=== PATIENT | female | born 1940 | race Caucasian/White ===

== ENCOUNTER 2020-08-30 19:09 | Inpatient (IN) ==
[2020-08-30] MEDS ORDERED: SODIUM CHLORIDE 0.9% 1,000 ML IV STA (19:30)
[2020-08-30 20:28] LABS: Basophils % 0.1 % (0.0-0.8); Hematocrit 33.3 VOL% (35.7-47.0); Immature Granulocytes % 0.4 %; Immature Granulocytes Absolute 0.04 #; Lymphocytes # 1.2 10*3/uL (1.4-4.0); Lymphocytes % 12.2 % (21.3-54.2); Mean Corpuscular Volume 94.1 FL (87-102); Mean Platelet Volume 9.5 FL (9.6-12.0); Monocytes % 4.3 % (1.7-12.7); Platelet Count 192 T/CUMM (130-400); Red Blood Count 3.54 MC/CUMM (3.8-5.5); Red Cell Distribution Width 13.2 % (9.3-17.3); White Blood Count 9.5 T/CUMM (4-12)
[2020-08-30 20:49] LABS: Alanine Aminotransferase 18 U/L (13-56); Albumin 3.1 G/DL (3.4-5.0); Alkaline Phosphatase 63 U/L (45-117); Aspartate Amino Transferase 20 U/L (0-37); Bilirubin,Total < 0.39 MG/DL (0.2-1.0); Blood Urea Nitrogen 23 MG/DL (7-18); Calcium 8.6 MG/DL (8.5-10.1); Estimated Glom Filtration Rate 30 ML/MIN; Ferritin 458.4 ng/ml (8-252); Glucose 139 MG/DL (74-106); Osmolality,Calculated 275.1 MOS/KG (273-304); Total Protein 7.6 G/DL (6.4-8.3)
[2020-08-30 20:52] LABS: Bacteria,Urine Occasional /HPF (Few); Bilirubin,Urine Negative (Negative); Blood, Urine Negative (Negative); Glucose,Urine (UA) Negative (Negative); Ketones,Urine 20 mg/dL (Negative); Mucus,Urine Occasional /LPF (Occasional); Nitrite,Urine Negative (Negative); Protein,Urine 30 MG/DL; RBC,Urine 13 /HPF (0-4); Squamous Epithelial Cell,Urine Occasional /HPF (0-10); Urine Appearance Slightly Hazy (Clear); Urine Color Yellow (Yellow); Urine Specific Gravity 1.017 (1.001-1.035); Urine Urobilinogen < 2.0 EU/DL (0.2-1.0); WBC,Urine 62 /HPF (0-6)
[2020-08-30] MEDS ORDERED: AZITHROMYCIN INJ 500 MG in SODIUM CHLORIDE 0.9% 250 ML IV STA (21:24)
[2020-08-30] MEDS ORDERED: DOCUSATE SODIUM 100 MG CAPSULE PO PRN (23:02)
[2020-08-30] MEDS ORDERED: ONDANSETRON 4 MG/2 ML VIAL IV PRN (23:02)
[2020-08-30] MEDS ORDERED: guaiFENesin/DM ER 600-30 MG TABLET PO PRN (23:02)
[2020-08-30] MEDS ORDERED: DEXTROSE 50% 25 GM/50 ML VIAL IV PRN (23:02)
[2020-08-30] MEDS ORDERED: GLUCAGON 1 MG VIAL IM PRN (23:02)
[2020-08-30] MEDS ORDERED: hydrALAZINE 20 MG/1 ML VIAL IV PRN (23:02)
[2020-08-30] MEDS ORDERED: diphenhydrAMINE CAP 25 MG CAPSULE PO PRN (23:02)
[2020-08-30] MEDS ORDERED: NICOTINE 21 MG/24 HR PATCH TRANSDERM PRN (23:02)
[2020-08-31] MEDS: cefTRIAXone 1,000 MG in SYRINGE 1 EACH IV SCH ×2 (01:00→22:34)
[2020-08-31] MEDS ORDERED: ALBUTEROL INHALER 18 GM INH PRN (01:23)
[2020-08-31] MEDS: SODIUM CHLORIDE 0.9% 1,000 ML IV SCH ×2 (02:02→16:37)
[2020-08-31] MEDS: ALBUTEROL INHALER 18 GM INH SCH ×6 (02:24→22:40)
[2020-08-31] MEDS: VANCOMYCIN INJ 750 MG in SODIUM CHLORIDE 0.9% 250 ML IV SCH (02:38)
[2020-08-31] MEDS: ACETAMINOPHEN 325 MG TABLET PO PRN (04:25)
[2020-08-31 05:53] LABS: Basophils % 0.2 % (0.0-0.8); Hematocrit 31.4 VOL% (35.7-47.0); Hemoglobin 10.3 GM/DL (12.0-16.0); Immature Granulocytes % 0.4 %; Immature Granulocytes Absolute 0.05 #; Lymphocytes # 1.1 10*3/uL (1.4-4.0); Lymphocytes % 9.8 % (21.3-54.2); Mean Corpuscular HGB Conc 32.8 GM/DL (32-36); Mean Corpuscular Volume 93.7 FL (87-102); Mean Platelet Volume 9.7 FL (9.6-12.0); Monocytes % 5.4 % (1.7-12.7); Neutrophils % 84.2 % (38.7-73.9); Platelet Count 174 T/CUMM (130-400); Red Blood Count 3.35 MC/CUMM (3.8-5.5); Red Cell Distribution Width 13.2 % (9.3-17.3); White Blood Count 11.4 T/CUMM (4-12)
[2020-08-31] MEDS ORDERED: LORATADINE 10 MG TABLET PO PRN (05:57)
[2020-08-31 06:10] LABS: Albumin 2.8 G/DL (3.4-5.0); Bilirubin,Total 0.6 MG/DL (0.2-1.0); Calcium 8.1 MG/DL (8.5-10.1); Osmolality,Calculated 275.8 MOS/KG (273-304); Total Protein 6.7 G/DL (6.4-8.3)
[2020-08-31] MEDS: LEVOTHYROXINE 50 MCG TABLET PO SCH (06:22)
[2020-08-31] MEDS ORDERED: ACETAMINOPHEN 500 MG TABLET PO ONE ×2 (07:32→18:28)
[2020-08-31] MEDS ORDERED: AZITHROMYCIN INJ 500 MG in SODIUM CHLORIDE 0.9% 250 ML IV SCH (08:30)
[2020-08-31] MEDS ORDERED: ENOXAPARIN 30 MG/0.3 ML SYRINGE SUBCUT SCH (09:00)
[2020-08-31] MEDS: carvediloL 12.5 MG TABLET PO SCH ×2 (09:14→16:37)
[2020-08-31] MEDS: PANTOPRAZOLE 40 MG TABLET PO SCH (09:14)
[2020-08-31] MEDS: AZITHROMYCIN 250 MG TABLET PO SCH (09:14)
[2020-08-31] MEDS: BUDESONIDE/FORMOTEROL 160-4.5 INHALER 6 GM INH SCH ×2 (09:15→20:48)
[2020-08-31] MEDS: MULTIVITAMIN (CENTRUM) TABLET PO SCH (09:15)
[2020-08-31] MEDS: ASPIRIN EC 81 MG TABLET PO SCH (09:15)
[2020-08-31] MEDS: GLUCOSAM CHON MSM1 C MANG BOSW PO SCH (09:15)
[2020-08-31] MEDS: NITROGLYCERIN 0.2 MG/HR PATCH TRANSDERM SCH (09:15)
[2020-08-31] MEDS ORDERED: SODIUM CHLORIDE 0.9% 1,000 ML IV PRN (12:18)
[2020-08-31] MEDS ORDERED: REMDESIVIR 200 MG in SODIUM CHLORIDE 0.9% 210 ML IV ONE (13:30)
[2020-08-31] MEDS: ENOXAPARIN 60 MG/0.6 ML SYRINGE SUBCUT SCH (19:40)
[2020-08-31] MEDS ORDERED: SKIN HEALING OINT (AQUAPHOR) 50 GM TUBE TOP PRN (20:05)
[2020-08-31] MEDS: SIMVASTATIN 10 MG TABLET PO SCH (20:47)
[2020-09-01] MEDS: VANCOMYCIN INJ 750 MG in SODIUM CHLORIDE 0.9% 250 ML IV SCH (02:46)
[2020-09-01 03:00] LABS: Allen Test Positive
[2020-09-01 03:01] LABS: ABG Base Excess -1.5 MMOL/L (-2.5-2.5); ABG HCO3 23.2 MMOL/L (20-26); ABG Oxygen Saturation 98.3 % (95-100); ABG PH 7.362 (7.35-7.45); ABG TCO2 22.1 MMOL/L (23-27)
[2020-09-01] MEDS: ALBUTEROL INHALER 18 GM INH SCH ×6 (03:38→23:13)
[2020-09-01 04:14] LABS: Basophils % 0.2 % (0.0-0.8); Hemoglobin 9.4 GM/DL (12.0-16.0); Immature Granulocytes % 0.8 %; Immature Granulocytes Absolute 0.11 #; Lymphocytes # 1.4 10*3/uL (1.4-4.0); Mean Corpuscular HGB Conc 31.3 GM/DL (32-36); Mean Corpuscular Volume 98.4 FL (87-102); Mean Platelet Volume 9.7 FL (9.6-12.0); Monocytes % 5.3 % (1.7-12.7); Neutrophils % 83.7 % (38.7-73.9); Platelet Count 153 T/CUMM (130-400); Red Blood Count 3.05 MC/CUMM (3.8-5.5); Red Cell Distribution Width 13.5 % (9.3-17.3); White Blood Count 14.5 T/CUMM (4-12)
[2020-09-01 04:41] LABS: Band Neutrophils 7 % (0-10); Hypochromasia 1+; Lymphocytes 11 % (20-55); Platelet Estimate Adequate; Segmented Neutrophils 78 % (50-85); Total Cells Counted 100
[2020-09-01 04:55] LABS: Alanine Aminotransferase 18 U/L (13-56); Albumin 2.4 G/DL (3.4-5.0); Alkaline Phosphatase 56 U/L (45-117); Aspartate Amino Transferase 21 U/L (0-37); Bilirubin,Total < 0.39 MG/DL (0.2-1.0); Blood Urea Nitrogen 22 MG/DL (7-18); Calcium 7.5 MG/DL (8.5-10.1); Estimated Glom Filtration Rate 40 ML/MIN; Glucose 103 MG/DL (74-106); Osmolality,Calculated 283.3 MOS/KG (273-304); Total Protein 6.2 G/DL (6.4-8.3)
[2020-09-01 05:29] LABS: Sedimentation Rate-Westergren 108 MM/HR (0-30)
[2020-09-01] MEDS: ACETAMINOPHEN 325 MG TABLET PO PRN (06:20)
[2020-09-01] MEDS: LEVOTHYROXINE 50 MCG TABLET PO SCH (06:20)
[2020-09-01] MEDS: SODIUM CHLORIDE 0.9% 1,000 ML IV SCH ×2 (06:21→17:45)
[2020-09-01] MEDS: ENOXAPARIN 60 MG/0.6 ML SYRINGE SUBCUT SCH ×2 (08:03→21:07)
[2020-09-01] MEDS: NITROGLYCERIN 0.2 MG/HR PATCH TRANSDERM SCH (08:03)
[2020-09-01] MEDS: MULTIVITAMIN (CENTRUM) TABLET PO SCH (08:04)
[2020-09-01] MEDS: PANTOPRAZOLE 40 MG TABLET PO SCH (08:04)
[2020-09-01] MEDS: carvediloL 12.5 MG TABLET PO SCH ×2 (08:04→17:45)
[2020-09-01] MEDS: BUDESONIDE/FORMOTEROL 160-4.5 INHALER 6 GM INH SCH ×2 (08:04→21:07)
[2020-09-01] MEDS: ASPIRIN EC 81 MG TABLET PO SCH (08:04)
[2020-09-01] MEDS: AZITHROMYCIN 250 MG TABLET PO SCH (08:04)
[2020-09-01] MEDS: GLUCOSAM CHON MSM1 C MANG BOSW PO SCH (09:16)
[2020-09-01 10:26] LABS: Troponin I 0.283 NG/ML (0.00-0.045)
[2020-09-01] MEDS: REMDESIVIR 100 MG in SODIUM CHLORIDE 0.9% 230 ML IV SCH (10:30)
[2020-09-01 16:00] LABS: Troponin I 0.225 NG/ML (0.00-0.045)
[2020-09-01] MEDS: ACETAMINOPHEN 500 MG TABLET PO SCH ×2 (17:44→21:08)
[2020-09-01] MEDS: SIMVASTATIN 10 MG TABLET PO SCH (21:07)
[2020-09-01] MEDS: cefTRIAXone 1,000 MG in SYRINGE 1 EACH IV SCH (22:33)
[2020-09-02 01:08] LABS: Basophils % 0.4 % (0.0-0.8); Eosinophils % 0.1 % (0.00-10.9); Hematocrit 28.2 VOL% (35.7-47.0); Hemoglobin 9.2 GM/DL (12.0-16.0); Immature Granulocytes % 0.5 %; Immature Granulocytes Absolute 0.05 #; Lymphocytes # 1.2 10*3/uL (1.4-4.0); Lymphocytes % 12.8 % (21.3-54.2); Mean Corpuscular HGB Conc 32.6 GM/DL (32-36); Mean Corpuscular Volume 94.9 FL (87-102); Mean Platelet Volume 9.6 FL (9.6-12.0); Monocytes % 6.1 % (1.7-12.7); Neutrophils % 80.1 % (38.7-73.9); Platelet Count 145 T/CUMM (130-400); Red Blood Count 2.97 MC/CUMM (3.8-5.5); Red Cell Distribution Width 13.9 % (9.3-17.3); White Blood Count 9.1 T/CUMM (4-12)
[2020-09-02 01:44] LABS: Risk Ratio 1.98; VLDL CHOLESTEROL 8.4 MG/DL
[2020-09-02 01:46] LABS: Alanine Aminotransferase 17 U/L (13-56); Albumin 2.2 G/DL (3.4-5.0); Alkaline Phosphatase 56 U/L (45-117); Aspartate Amino Transferase 18 U/L (0-37); Bilirubin,Total < 0.39 MG/DL (0.2-1.0); Blood Urea Nitrogen 19 MG/DL (7-18); Calcium 7.5 MG/DL (8.5-10.1); Estimated Glom Filtration Rate 45 ML/MIN; Ferritin 755.1 ng/ml (8-252); Glucose 85 MG/DL (74-106); Osmolality,Calculated 288.7 MOS/KG (273-304); Total Protein 5.8 G/DL (6.4-8.3)
[2020-09-02 01:51] LABS: Thyroid Stimulating Hormone 1.27 uIU/ml (0.358-3.74)
[2020-09-02 02:13] LABS: Sedimentation Rate-Westergren 104 MM/HR (0-30)
[2020-09-02] MEDS: ALBUTEROL INHALER 18 GM INH SCH ×6 (02:30→23:22)
[2020-09-02] MEDS: VANCOMYCIN INJ 750 MG in SODIUM CHLORIDE 0.9% 250 ML IV SCH ×2 (02:30→14:25)
[2020-09-02] MEDS: ACETAMINOPHEN 500 MG TABLET PO SCH ×3 (06:04→21:03)
[2020-09-02] MEDS: LEVOTHYROXINE 50 MCG TABLET PO SCH (06:05)
[2020-09-02] MEDS: ENOXAPARIN 60 MG/0.6 ML SYRINGE SUBCUT SCH ×2 (08:38→20:28)
[2020-09-02] MEDS: MULTIVITAMIN (CENTRUM) TABLET PO SCH (08:39)
[2020-09-02] MEDS: AZITHROMYCIN 250 MG TABLET PO SCH (08:39)
[2020-09-02] MEDS: carvediloL 12.5 MG TABLET PO SCH ×2 (08:40→16:28)
[2020-09-02] MEDS: ASPIRIN EC 81 MG TABLET PO SCH (08:40)
[2020-09-02] MEDS: PANTOPRAZOLE 40 MG TABLET PO SCH (08:40)
[2020-09-02] MEDS: SODIUM CHLORIDE 0.9% 1,000 ML IV SCH ×2 (08:41→23:22)
[2020-09-02] MEDS: BUDESONIDE/FORMOTEROL 160-4.5 INHALER 6 GM INH SCH ×2 (08:45→20:29)
[2020-09-02] MEDS: REMDESIVIR 100 MG in SODIUM CHLORIDE 0.9% 230 ML IV SCH (09:42)
[2020-09-02] MEDS: GLUCOSAM CHON MSM1 C MANG BOSW PO SCH (09:59)
[2020-09-02] MEDS: NITROGLYCERIN 0.2 MG/HR PATCH TRANSDERM SCH (13:34)
[2020-09-02] MEDS: SIMVASTATIN 10 MG TABLET PO SCH (20:29)
[2020-09-02] MEDS: ZALEPLON 5 MG CAPSULE PO PRN (20:30)
[2020-09-02] MEDS: cefTRIAXone 1,000 MG in SYRINGE 1 EACH IV SCH (22:30)
[2020-09-03] MEDS ORDERED: VANCOMYCIN INJ 750 MG in SODIUM CHLORIDE 0.9% 250 ML IV SCH (02:30)
[2020-09-03] MEDS: ALBUTEROL INHALER 18 GM INH SCH ×6 (03:22→22:49)
[2020-09-03 05:39] LABS: Basophils % 0.4 % (0.0-0.8); Eosinophils # 0.1 10*3/uL (0.0-0.87); Eosinophils % 0.5 % (0.00-10.9); Hematocrit 30.5 VOL% (35.7-47.0); Hemoglobin 9.7 GM/DL (12.0-16.0); Immature Granulocytes % 1.4 %; Immature Granulocytes Absolute 0.13 #; Lymphocytes # 1.2 10*3/uL (1.4-4.0); Lymphocytes % 12.8 % (21.3-54.2); Mean Corpuscular HGB Conc 31.8 GM/DL (32-36); Mean Corpuscular Volume 95.6 FL (87-102); Mean Platelet Volume 9.9 FL (9.6-12.0); Monocytes % 6.6 % (1.7-12.7); Neutrophils % 78.3 % (38.7-73.9); Platelet Count 176 T/CUMM (130-400); Red Blood Count 3.19 MC/CUMM (3.8-5.5); Red Cell Distribution Width 13.8 % (9.3-17.3); White Blood Count 9.3 T/CUMM (4-12)
[2020-09-03] MEDS: ACETAMINOPHEN 500 MG TABLET PO SCH ×3 (05:40→22:49)
[2020-09-03] MEDS: LEVOTHYROXINE 50 MCG TABLET PO SCH (05:41)
[2020-09-03 06:09] LABS: Albumin 2.4 G/DL (3.4-5.0); Bilirubin,Total 0.9 MG/DL (0.2-1.0); Ferritin 939.1 ng/ml (8-252)
[2020-09-03 07:02] LABS: Sedimentation Rate-Westergren 108 MM/HR (0-30)
[2020-09-03] MEDS: NITROGLYCERIN 0.2 MG/HR PATCH TRANSDERM SCH (09:00)
[2020-09-03] MEDS ORDERED: NITROGLYCERIN 0.2 MG/HR PATCH TRANSDERM ONE (09:30)
[2020-09-03] MEDS: MULTIVITAMIN (CENTRUM) TABLET PO SCH (09:51)
[2020-09-03] MEDS: ENOXAPARIN 60 MG/0.6 ML SYRINGE SUBCUT SCH ×2 (09:51→20:36)
[2020-09-03] MEDS: AZITHROMYCIN 250 MG TABLET PO SCH (09:51)
[2020-09-03] MEDS: PANTOPRAZOLE 40 MG TABLET PO SCH (09:52)
[2020-09-03] MEDS: carvediloL 12.5 MG TABLET PO SCH ×2 (09:52→16:29)
[2020-09-03] MEDS: REMDESIVIR 100 MG in SODIUM CHLORIDE 0.9% 230 ML IV SCH (09:52)
[2020-09-03] MEDS: ASPIRIN EC 81 MG TABLET PO SCH (09:52)
[2020-09-03] MEDS: BUDESONIDE/FORMOTEROL 160-4.5 INHALER 6 GM INH SCH ×2 (09:58→20:41)
[2020-09-03] MEDS: GLUCOSAM CHON MSM1 C MANG BOSW PO SCH (10:07)
[2020-09-03] MEDS: POTASSIUM CHLORIDE 20 MEQ TABLET PO PRN ×4 (12:51→22:49)
[2020-09-03] MEDS: ZINC OXIDE PASTE 113 GM TUBE TOP SCH ×2 (13:00→20:41)
[2020-09-03] MEDS: SODIUM CHLORIDE 0.9% 1,000 ML IV SCH (16:17)
[2020-09-03] MEDS: ZALEPLON 5 MG CAPSULE PO PRN (20:36)
[2020-09-03] MEDS: SIMVASTATIN 10 MG TABLET PO SCH (20:41)
[2020-09-03] MEDS: cefTRIAXone 1,000 MG in SYRINGE 1 EACH IV SCH (22:49)
[2020-09-04] MEDS: SODIUM CHLORIDE 0.9% 1,000 ML IV SCH ×2 (03:38→19:06)
[2020-09-04] MEDS: ALBUTEROL INHALER 18 GM INH SCH ×6 (03:38→22:25)
[2020-09-04 05:35] LABS: Basophils # 0.1 10*3/uL (0.0-0.2); Basophils % 0.5 % (0.0-0.8); Eosinophils # 0.1 10*3/uL (0.0-0.87); Eosinophils % 0.9 % (0.00-10.9); Hematocrit 31.7 VOL% (35.7-47.0); Hemoglobin 10.2 GM/DL (12.0-16.0); Immature Granulocytes % 1.9 %; Immature Granulocytes Absolute 0.19 #; Lymphocytes # 1.1 10*3/uL (1.4-4.0); Lymphocytes % 10.5 % (21.3-54.2); Mean Corpuscular HGB Conc 32.2 GM/DL (32-36); Mean Corpuscular Volume 94.3 FL (87-102); Mean Platelet Volume 9.7 FL (9.6-12.0); Monocytes % 5.8 % (1.7-12.7); Neutrophils % 80.4 % (38.7-73.9); Platelet Count 221 T/CUMM (130-400); Red Blood Count 3.36 MC/CUMM (3.8-5.5); Red Cell Distribution Width 14.3 % (9.3-17.3); White Blood Count 10.2 T/CUMM (4-12)
[2020-09-04 06:00] LABS: Albumin 2.4 G/DL (3.4-5.0); Bilirubin,Total 0.5 MG/DL (0.2-1.0); Calcium 8.1 MG/DL (8.5-10.1); Ferritin 1019.1 ng/ml (8-252); Total Protein 6.3 G/DL (6.4-8.3)
[2020-09-04] MEDS: LEVOTHYROXINE 50 MCG TABLET PO SCH (06:05)
[2020-09-04] MEDS: ACETAMINOPHEN 500 MG TABLET PO SCH ×3 (06:05→21:08)
[2020-09-04 06:55] LABS: Sedimentation Rate-Westergren 100 MM/HR (0-30)
[2020-09-04] MEDS: ZINC OXIDE PASTE 113 GM TUBE TOP SCH ×2 (07:30→21:08)
[2020-09-04 07:45] LABS: ABG Base Excess 1.5 MMOL/L (-2.5-2.5); ABG HCO3 25.7 MMOL/L (20-26); ABG Oxygen Saturation 96.2 % (95-100); ABG PCO2 37.3 MM HG (35-48); ABG PH 7.442 (7.35-7.45); ABG PO2 72.6 MM HG (80-95); ABG TCO2 23.2 MMOL/L (23-27)
[2020-09-04] MEDS: PANTOPRAZOLE 40 MG TABLET PO SCH (09:46)
[2020-09-04] MEDS: carvediloL 12.5 MG TABLET PO SCH ×2 (09:46→17:15)
[2020-09-04] MEDS: ASPIRIN EC 81 MG TABLET PO SCH (09:46)
[2020-09-04] MEDS: MULTIVITAMIN (CENTRUM) TABLET PO SCH (09:46)
[2020-09-04] MEDS: ENOXAPARIN 60 MG/0.6 ML SYRINGE SUBCUT SCH ×2 (09:46→21:08)
[2020-09-04] MEDS: BUDESONIDE/FORMOTEROL 160-4.5 INHALER 6 GM INH SCH ×2 (09:53→21:08)
[2020-09-04] MEDS: GLUCOSAM CHON MSM1 C MANG BOSW PO SCH (09:53)
[2020-09-04] MEDS: NITROGLYCERIN 0.2 MG/HR PATCH TRANSDERM SCH (10:39)
[2020-09-04] MEDS: REMDESIVIR 100 MG in SODIUM CHLORIDE 0.9% 230 ML IV SCH (10:41)
[2020-09-04] MEDS: SIMVASTATIN 10 MG TABLET PO SCH (21:08)
[2020-09-04] MEDS: ZALEPLON 5 MG CAPSULE PO PRN (22:25)
[2020-09-04] MEDS: cefTRIAXone 1,000 MG in SYRINGE 1 EACH IV SCH (22:53)
[2020-09-05] MEDS: ALBUTEROL INHALER 18 GM INH SCH ×6 (03:39→22:30)
[2020-09-05] MEDS: ACETAMINOPHEN 500 MG TABLET PO SCH ×3 (06:03→22:29)
[2020-09-05] MEDS: LEVOTHYROXINE 50 MCG TABLET PO SCH (06:03)
[2020-09-05 06:31] LABS: Basophils # 0.1 10*3/uL (0.0-0.2); Basophils % 0.5 % (0.0-0.8); Eosinophils # 0.1 10*3/uL (0.0-0.87); Hematocrit 27.2 VOL% (35.7-47.0); Hemoglobin 9.2 GM/DL (12.0-16.0); Immature Granulocytes % 2.4 %; Lymphocytes # 1.4 10*3/uL (1.4-4.0); Lymphocytes % 11.4 % (21.3-54.2); Mean Corpuscular HGB Conc 33.8 GM/DL (32-36); Mean Corpuscular Volume 92.5 FL (87-102); Mean Platelet Volume 10.1 FL (9.6-12.0); Monocytes % 5.7 % (1.7-12.7); Platelet Count 237 T/CUMM (130-400); Red Blood Count 2.94 MC/CUMM (3.8-5.5); Red Cell Distribution Width 14.4 % (9.3-17.3); White Blood Count 12.3 T/CUMM (4-12)
[2020-09-05 07:03] LABS: Albumin 2.3 G/DL (3.4-5.0); Bilirubin,Total 0.4 MG/DL (0.2-1.0); Calcium 8.1 MG/DL (8.5-10.1); Ferritin 1140.5 ng/ml (8-252); Osmolality,Calculated 279.3 MOS/KG (273-304); Total Protein 6.6 G/DL (6.4-8.3)
[2020-09-05 07:41] LABS: Sedimentation Rate-Westergren 112 MM/HR (0-30)
[2020-09-05] MEDS: ACETAMINOPHEN 325 MG TABLET PO PRN (08:43)
[2020-09-05] MEDS: ENOXAPARIN 40 MG/0.4 ML SYRINGE SUBCUT SCH (08:43)
[2020-09-05] MEDS: PANTOPRAZOLE 40 MG TABLET PO SCH (08:43)
[2020-09-05] MEDS: POTASSIUM CHLORIDE 20 MEQ TABLET PO PRN ×3 (08:43→22:29)
[2020-09-05] MEDS: MULTIVITAMIN (CENTRUM) TABLET PO SCH (08:43)
[2020-09-05] MEDS: ASPIRIN EC 81 MG TABLET PO SCH (08:43)
[2020-09-05] MEDS: GLUCOSAM CHON MSM1 C MANG BOSW PO SCH (08:44)
[2020-09-05] MEDS: SODIUM CHLORIDE 0.9% 1,000 ML IV SCH ×2 (08:44→22:29)
[2020-09-05] MEDS: carvediloL 12.5 MG TABLET PO SCH ×2 (08:44→18:19)
[2020-09-05] MEDS: ZINC OXIDE PASTE 113 GM TUBE TOP SCH ×2 (08:44→20:12)
[2020-09-05] MEDS: NITROGLYCERIN 0.2 MG/HR PATCH TRANSDERM SCH (08:45)
[2020-09-05] MEDS: BUDESONIDE/FORMOTEROL 160-4.5 INHALER 6 GM INH SCH ×2 (08:45→20:12)
[2020-09-05] MEDS: traMADol 50 MG TABLET PO PRN ×2 (11:08→20:11)
[2020-09-05] MEDS: SIMVASTATIN 10 MG TABLET PO SCH (20:12)
[2020-09-05] MEDS: cefTRIAXone 1,000 MG in SYRINGE 1 EACH IV SCH (22:30)
[2020-09-06] MEDS: POTASSIUM CHLORIDE 20 MEQ TABLET PO PRN (00:34)
[2020-09-06] MEDS: ALBUTEROL INHALER 18 GM INH SCH ×5 (02:42→18:18)
[2020-09-06] MEDS: ACETAMINOPHEN 500 MG TABLET PO SCH ×2 (05:59→13:16)
[2020-09-06] MEDS: LEVOTHYROXINE 50 MCG TABLET PO SCH (05:59)
[2020-09-06 06:04] LABS: Calcium 7.8 MG/DL (8.5-10.1)
[2020-09-06 06:07] LABS: Basophils % 0.2 % (0.0-0.8); Eosinophils # 0.2 10*3/uL (0.0-0.87); Eosinophils % 1.3 % (0.00-10.9); Hematocrit 21.4 VOL% (35.7-47.0); Immature Granulocytes % 1.8 %; Immature Granulocytes Absolute 0.25 #; Lymphocytes # 1.4 10*3/uL (1.4-4.0); Lymphocytes % 10.1 % (21.3-54.2); Mean Corpuscular HGB Conc 33.6 GM/DL (32-36); Mean Corpuscular Volume 94.3 FL (87-102); Mean Platelet Volume 9.5 FL (9.6-12.0); Monocytes % 5.9 % (1.7-12.7); Neutrophils % 80.7 % (38.7-73.9); Platelet Count 228 T/CUMM (130-400); Red Cell Distribution Width 14.6 % (9.3-17.3); White Blood Count 13.9 T/CUMM (4-12)
[2020-09-06 06:15] LABS: Hemoglobin 7.2 GM/DL (12.0-16.0); Red Blood Count 2.27 MC/CUMM (3.8-5.5)
[2020-09-06] MEDS: NITROGLYCERIN 0.2 MG/HR PATCH TRANSDERM SCH (08:29)
[2020-09-06] MEDS: MULTIVITAMIN (CENTRUM) TABLET PO SCH (08:30)
[2020-09-06] MEDS: PANTOPRAZOLE 40 MG TABLET PO SCH (08:30)
[2020-09-06] MEDS: carvediloL 12.5 MG TABLET PO SCH ×2 (08:30→16:43)
[2020-09-06] MEDS: ASPIRIN EC 81 MG TABLET PO SCH ×2 (08:30→08:46)
[2020-09-06] MEDS: traMADol 50 MG TABLET PO PRN ×2 (08:30→16:43)
[2020-09-06] MEDS: BUDESONIDE/FORMOTEROL 160-4.5 INHALER 6 GM INH SCH (08:31)
[2020-09-06] MEDS: GLUCOSAM CHON MSM1 C MANG BOSW PO SCH (08:31)
[2020-09-06] MEDS: ZINC OXIDE PASTE 113 GM TUBE TOP SCH (08:31)
[2020-09-06] MEDS: ENOXAPARIN 40 MG/0.4 ML SYRINGE SUBCUT SCH ×2 (08:31→08:46)
[2020-09-06 09:39] LABS: Hematocrit 20.6 VOL% (35.7-47.0)
[2020-09-06] MEDS ORDERED: SODIUM CHLORIDE 0.9% 1,000 ML IV PRN ×2 (09:44→10:35)
[2020-09-06 10:04] LABS: % Iron Saturation 11.4 % (18-50); Ferritin 1061.7 ng/ml (8-252)
[2020-09-06] MEDS ORDERED: IRON SUCROSE 200 MG in SODIUM CHLORIDE 0.9% 100 ML IV SCH (11:30)
[2020-09-06] MEDS: SODIUM CHLORIDE 0.9% 1,000 ML IV SCH (11:47)
[2020-09-06 16:37] LABS: Hematocrit 24.2 VOL% (35.7-47.0)
[2020-09-06 16:54] LABS: Hemoglobin 8.1 GM/DL (12.0-16.0)
[2020-09-06 20:03] VITALS: BP 146/60
[2020-09-06 23:05] LABS: Specimen Source NASAL
== END 2020-09-06 19:29 | DRG 871 ==
LOC: EDUNIT# → N.ED 19:09 → SUATTDRO 23:02 → N.EDINP 23:02 → N.2E 08-31 01:10 → N.CC 08-31 18:56 → N.2E 09-01 13:45
PROVIDERS: ADMIT Internal Medicine; ATTEND Internal Medicine